=== PATIENT | female | born 1970 | race Caucasian/White ===

== ENCOUNTER 2019-06-13 16:17 | Emergency (ER) | payer OTHER, SELFPAY ==
[2019-06-13 16:27] VITALS: BP 111/69; PULSE 70; RESP 16; TEMP 37.5; O2SAT 100
--- NOTE | 2019-06-13 16:59 | ED.GENADULT ---
HPI - General Adult General Chief complaint: Urogenital-Female Stated complaint: UTI Time Seen by Provider: 06/13/19 16:59 Source: patient and RN notes reviewed Mode of arrival: ambulatory Limitations: no limitations History of Present Illness HPI narrative: 49-year-old female presents with urinary complaints for 1 day. Dysuria consist of urinating small amounts with burning, frequency, and urgency.? No treatment.? Denies fever or chills. No significant pelvic pain. No vaginal discharge.? No concerns for STDs. Exacerbating factors urinating.? Denies hematuria or vaginal bleeding. LBM today and normal. Denies being , LMP 09/2018-Menopause.? No flank pain. Denies nausea, vomiting, and abdominal pain. Tolerating liquids well.? Remains active. Some parts of this dictation were generated by voice recognition software and may contain typographical and/or grammatical inaccuracies. Related Data Home Medications Medication Instructions Recorded Confirmed cyclobenzaprine 5 mg PO DAILY 06/13/19 06/13/19 methimazole 5 mg PO DAILY 06/13/19 06/13/19 verapamil 40 mg PO DAILY 06/13/19 06/13/19 Allergies Allergy/AdvReac Type Severity Reaction Status Date / Time No Known Allergies Allergy Unverified 06/13/19 16:44 Review of Systems Review of Systems: Narrative: CONSTITUTIONAL: Denies fever, chills, sweats. EYES: Denies visual changes, redness, discharge. ENT: Denies rhinorrhea, congestion, sore throat, otalgia. CARDIOVASCULAR: Denies chest pain, palpitations, edema. RESPIRATORY: Denies dyspnea, wheezing, cough. GASTROINTESTINAL: Denies abdominal pain, nausea, vomiting, diarrhea. GENITOURINARY: Complains of dysuria (burning, frequency, and urgency). Denies hematuria, abnormal discharge. SKIN: Denies rash or itching. MUSCULOSKELETAL: Denies acute back pain, joint pain, or myalgia. NEUROLOGIC: Denies numbness or focal weakness. PSYCHIATRIC: Denies anxiety or depression. All systems reviewed & are unremarkable except as noted in HPI and below. [facility] Past Medical History Medical History (Updated 06/21/19 @ 05:20 by SAGRARIO Hammond) Hypertension Hypothyroidism Menopause Nonunion of osteotomy site Left foot TMJ dysfunction Surgical History Surgical History (Updated 06/13/19 @ 17:10 by SAGRARIO Hammond) History of bunionectomy Bilateral great toe History of nasal surgery Family History Family History (Updated 06/13/19 @ 17:11 by SAGRARIO Hammond) Other Adopted Social History Social History (Updated 06/13/19 @ 17:12 by SAGRARIO Hammond) Smoking status: Former smoker Second hand tobacco smoke exposure: No Additional smoking assessment comments: Verónica says she stopped smoking 10 years ago Alcohol intake: current Substance use: never Living arrangements: with family Occupation/Education: occupation Gender identity (if verbalized by the patient): Female Comments At time of signature, agree with nurse past medical, surgical, social, and family history.? There is no relevant family history pertinent to the presenting complaint. Exam Narrative: Exam Narrative: GENERAL: This is a well-nourished, well-developed patient, in no apparent distress.? Talks in full sentences and ambulates with steady gait without dyspnea. HEAD: normocephalic, atraumatic. EYES: PERRL. Sclera clear/white. Vision is grossly intact. CARDIOVASCULAR: Regular rate and rhythm without murmurs, gallops, or rubs. RESPIRATORY: Clear to auscultation. Breath sounds equal bilaterally. No wheezes, rales, or rhonchi.? GASTROINTESTINAL: Abdomen soft, no significant abdominal tenderness, nondistended. Bowel sounds are active. No hepato-splenomegaly, or palpable masses. No guarding. SKIN: warm, intact with no suspicious lesions or rash, No Purpura or Ecchymosis, good texture and turgor. NEURO: awake, alert, and oriented to person, place and time. There were no obvious focal neurologic abnormalities.? E
== END 2019-06-13 17:22 | disposition home or self-care (01) ==
PROVIDERS: Emergency Provider Nurse Practitioner Family; PCP Family Medicine
DX: R30.0 Dysuria (principal); R31.9 Hematuria, unspecified; Z87.891 Personal history of nicotine dependence; E05.90 Thyrotoxicosis, unspecified without thyrotoxic crisis or storm; I10 Essential (primary) hypertension
CPT/HCPCS: 81003; 99213; G0463

== ENCOUNTER 2021-10-18 13:29 | Outpatient (CLI) | payer OTHER, SELFPAY ==
--- NOTE | ~2021-10-18 | CT_ITS ---
EXAMINATION: CTA brain carotid DATE: 10/18/2021 14:24 INDICATION: Presyncope. Visual disturbance. TECHNIQUE: Computed tomographic angiography (CTA) of the head was performed without and with 100 mL O mnipaque 300 intravenous contrast. CTA of the neck was performed with intravenous contrast. Automated exposure control and iterative reconstruction technique were employed. The dose-length product was 1 635.60 mGy-cm. Maximum intensity projection and volume rendered 3D-reconstructions were created by melissa eaton technologist on a separate workstation. COMPARISON: Thyroid ultrasound 10/14/2018 FINDINGS: HEAD CTA: There is no intracranial hemorrhage, acute infarction, or abnormal intracranial mass lesion . The ventricles are normal in size. The paranasal sinuses are clear. The mastoid air cells are abad l. The orbits are normal. The vertebral arteries are codominant. There is no significant stenosis of basilar artery or the posterior cerebral arteries. There is no significant stenosis of the intracrani al internal carotid arteries or anterior or middle cerebral arteries. Anterior communicating artery i s normal. The posterior communicating arteries are normal. There is no aneurysm. NECK CTA: There is mild emphysema. There is a multinodular goiter. There are no pathologically enlarg ed lymph nodes. There is no significant stenosis of the vertebral arteries. There is no visible plaqu e in the proximal internal carotid arteries. There is 0% stenosis of the proximal right internal millan tid artery relative to normal distal artery lumen diameter (NASCET criteria). There is 0% stenosis of the proximal left internal carotid artery relative to normal distal artery lumen diameter. There is mild cervical spondylosis. IMPRESSION: 1. Normal brain. No aneurysm or significant intracranial internal stenosis. 2. 0% stenosis of the proximal internal carotid arteries relative to normal distal artery lumen diame ters (NASCET criteria). Reviewed, dictated and finalized at location A. IMPRESSION: 1. Normal brain. No aneurysm or significant intracranial internal stenosis. 2. 0% stenosis of the proximal internal carotid arteries relative to normal dis cyrus artery lumen diameters (NASCET criteria).
== END 2021-10-18 13:30 | disposition home or self-care (01) ==
PROVIDERS: PCP Family Medicine; Visit Provider Nurse Practitioner Adult Health
DX: R42 Dizziness and giddiness (principal); H53.9 Unspecified visual disturbance; E04.2 Nontoxic multinodular goiter
CPT/HCPCS: 70496; 70498; Q9967